=== PATIENT | male | born 1965 | race Caucasian/White ===

== ENCOUNTER 2023-12-29 06:04 | Inpatient (IN) | payer MEDICARE ==
[2023-12-29 06:38] LABS: BASOPHILS ABSOLUTE AUTO 0.02 K/uL (0.00-0.20); BASOPHILS PERCENT AUTO 0.2 % (0.0-1.0); EOSINOPHILS ABSOLUTE AUTO 0.02 K/uL (0.00-0.45); EOSINOPHILS PERCENT AUTO 0.2 % (0.0-6.0); HEMATOCRIT 39.2 % (42.0-52.0); IMMATURE GRAN ABSOLUTE AUTO 0.02 K/uL (0.00-0.05); IMMATURE GRAN PERCENT AUTO 0.2 % (0.0-0.4); LYMPHOCYTES ABSOLUTE AUTO 0.57 K/uL (1.00-4.80); MEAN CORPUSCULAR HEMOGLOBIN 27.4 pg (28.0-32.0); MEAN CORPUSCULAR HGB CONC 33.2 g/dL (32.0-36.0); MEAN CORPUSCULAR VOLUME 82.5 fL (83.0-99.0); MEAN PLATELET VOLUME 9.7 fL (9.4-12.4); MONOCYTES ABSOLUTE AUTO 0.23 K/uL (0.00-0.80); MONOCYTES PERCENT AUTO 2.8 % (0.0-8.0); NEUTROPHILS ABSOLUTE AUTO 7.26 K/uL (1.80-7.70); NEUTROPHILS PERCENT AUTO 89.6 % (41.0-71.0); PLATELET COUNT,PLT 259 K/uL (150-400); RED BLOOD CELL COUNT 4.75 M/uL (4.52-5.90); WHITE BLOOD CELL COUNT,WBC 8.12 K/uL (3.9-11.3)
[2023-12-29 06:49] LABS: BASE EXCESS VENOUS 1.5 (-2.0-3.0); PH,VENOUS 7.54 (7.31-7.41)
[2023-12-29] MEDS: Acetaminophen 500 MG Tab PO ONE (06:51)
[2023-12-29] MEDS: Cefepime 2 GM in Sodium Chloride 0.9% 50 ML IV STA (06:52)
[2023-12-29] MEDS: Sodium Chloride 0.9% 10 ML Syringe FLUSH PRN (06:52)
[2023-12-29] MEDS: Sodium Chloride 0.9% 1,000 ML IV ONE ×2 (06:52→08:04)
[2023-12-29] MEDS: Ondansetron 4 MG/2 ML SDV IVPUSH ONE (06:52)
[2023-12-29] MEDS: Sodium Chloride 0.9% 2.5 ML Syringe FLUSH PRN (06:52)
[2023-12-29 06:56] LABS: D-DIMER QUANTITATIVE 3.98 mg/L FEU (0.00-0.50); INR 1.09 (0.86-1.11); LACTIC ACID 2.5 mmol/L (0.4-2.0)
[2023-12-29 07:02] LABS: ALBUMIN 3.4 g/dL (3.4-5.0); BILIRUBIN TOTAL 0.7 mg/dL (0.2-1.0); CALCIUM 8.7 mg/dL (8.5-10.1); CARBON DIOXIDE,CO2 24.2 mmol/L (21.0-32.0); CREATININE 1.3 mg/dL (0.8-1.3); EST CRCL DRUG DOSING (CG) 57.26 mL/min; MAGNESIUM 1.4 mg/dL (1.8-2.4); POTASSIUM,K 4.3 mmol/L (3.5-5.1); PROTEIN TOTAL,TP 6.7 g/dL (6.4-8.2); TSH ULTRASENSITIVE 1.34 uIU/mL (0.36-3.74)
[2023-12-29] MEDS: Iopamidol 755 MG/ML 500 ML Multipack Bottle IVPUSH STA (07:59)
[2023-12-29] MEDS: VANCOmycin 2 GM/400 ML 2 GM in Premix Bag 1 BAG IV ONE (08:04)
[2023-12-29] MEDS: Ketorolac 30 MG/ML SDV IVPUSH ONE ×2 (09:14→21:31)
[2023-12-29 09:59] LABS: APPEARANCE,URINE CLEAR; BILIRUBIN,URINE NEGATIVE (NEGATIVE); COLOR,URINE YELLOW; GLUCOSE,URINE NEGATIVE (NEGATIVE); KETONES,URINE NEGATIVE (NEGATIVE); LEUKOCYTE ESTERASE,URINE NEGATIVE (NEGATIVE); NITRITE,URINE NEGATIVE (NEGATIVE); OCCULT BLOOD,URINE NEGATIVE (NEGATIVE); PROTEIN,URINE NEGATIVE (NEGATIVE); UROBILINOGEN,URINE 0.2 EU/dL (<2.0)
[2023-12-29 11:33] LABS: INFLUENZA A NAA NEGATIVE (NEGATIVE); INFLUENZA B NAA NEGATIVE (NEGATIVE)
[2023-12-29] MEDS: Azithromycin 500 MG in Sodium Chloride 0.9% 250 ML IV SCH (12:17)
[2023-12-29] MEDS: Albuterol/Ipratropium 3.0-0.5 MG/3 ML Neb Soln NEB SCH (12:18)
[2023-12-29] MEDS: FLUoxetine 20 MG Cap PO SCH (13:07)
[2023-12-29] MEDS: cefTRIAXone 1 GM in Sodium Chloride 0.9% 50 ML IV SCH (14:54)
[2023-12-29] MEDS: Magnesium Oxide 400 MG Tab PO ONE (19:26)
[2023-12-29] MEDS: Pregabalin 75 MG Cap PO SCH (20:50)
[2023-12-29] MEDS: Montelukast 10 MG Tab PO SCH (20:50)
[2023-12-29] MEDS: Pantoprazole 40 MG Tab.CR PO SCH (20:50)
[2023-12-29] MEDS: traZODone 50 MG Tab PO SCH ×2 (21:31→23:18)
[2023-12-30] MEDS: Levothyroxine 50 MCG Tab PO SCH (06:30)
[2023-12-30 06:43] LABS: BASOPHILS ABSOLUTE AUTO 0.06 K/uL (0.00-0.20); BASOPHILS PERCENT AUTO 0.4 % (0.0-1.0); EOSINOPHILS ABSOLUTE AUTO 0.09 K/uL (0.00-0.45); EOSINOPHILS PERCENT AUTO 0.5 % (0.0-6.0); HEMATOCRIT 31.4 % (42.0-52.0); HEMOGLOBIN 10.5 g/dL (14.0-18.0); IMMATURE GRAN ABSOLUTE AUTO 0.13 K/uL (0.00-0.05); IMMATURE GRAN PERCENT AUTO 0.8 % (0.0-0.4); LYMPHOCYTES ABSOLUTE AUTO 1.43 K/uL (1.00-4.80); LYMPHOCYTES PERCENT AUTO 8.3 % (24.0-44.0); MEAN CORPUSCULAR HEMOGLOBIN 27.9 pg (28.0-32.0); MEAN CORPUSCULAR HGB CONC 33.4 g/dL (32.0-36.0); MEAN CORPUSCULAR VOLUME 83.5 fL (83.0-99.0); MONOCYTES ABSOLUTE AUTO 1.18 K/uL (0.00-0.80); MONOCYTES PERCENT AUTO 6.9 % (0.0-8.0); NEUTROPHILS ABSOLUTE AUTO 14.25 K/uL (1.80-7.70); NEUTROPHILS PERCENT AUTO 83.1 % (41.0-71.0); PLATELET COUNT,PLT 201 K/uL (150-400); RED BLOOD CELL COUNT 3.76 M/uL (4.52-5.90); WHITE BLOOD CELL COUNT,WBC 17.14 K/uL (3.9-11.3)
[2023-12-30 07:00] LABS: CALCIUM 8.1 mg/dL (8.5-10.1); CARBON DIOXIDE,CO2 23.8 mmol/L (21.0-32.0); CREATININE 1.2 mg/dL (0.8-1.3); EST CRCL DRUG DOSING (CG) 62.03 mL/min; POTASSIUM,K 3.8 mmol/L (3.5-5.1)
[2023-12-30] MEDS: Lisinopril 10 MG Tab PO SCH (09:08)
[2023-12-30] MEDS: Cetirizine 10 MG Tab PO SCH (09:09)
[2023-12-30] MEDS: cefTRIAXone 2 GM in Sodium Chloride 0.9% 50 ML IV SCH (10:43)
[2023-12-30] MEDS ORDERED: Polyethylene Glycol 3350 Powder 17 GM Packet PO SCH (12:30)
[2023-12-30] MEDS: Ibuprofen 800 MG Tab PO PRN (13:21)
[2023-12-30] MEDS: Polyethylene Glycol 3350 Powder 17 GM Packet PO PRN (13:27)
[2023-12-30] MEDS: Benzonatate 100 MG Cap PO SCH (14:08)
[2023-12-30] MEDS: Cariprazine Hcl [Vraylar] 1.5 MG Capsule PO SCH (15:31)
[2023-12-31 05:24] LABS: BASOPHILS ABSOLUTE AUTO 0.02 K/uL (0.00-0.20); BASOPHILS PERCENT AUTO 0.2 % (0.0-1.0); EOSINOPHILS ABSOLUTE AUTO 0.09 K/uL (0.00-0.45); EOSINOPHILS PERCENT AUTO 0.7 % (0.0-6.0); HEMATOCRIT 31.1 % (42.0-52.0); HEMOGLOBIN 10.4 g/dL (14.0-18.0); IMMATURE GRAN ABSOLUTE AUTO 0.04 K/uL (0.00-0.05); IMMATURE GRAN PERCENT AUTO 0.3 % (0.0-0.4); LYMPHOCYTES ABSOLUTE AUTO 0.94 K/uL (1.00-4.80); LYMPHOCYTES PERCENT AUTO 7.8 % (24.0-44.0); MEAN CORPUSCULAR HGB CONC 33.4 g/dL (32.0-36.0); MEAN CORPUSCULAR VOLUME 83.6 fL (83.0-99.0); MEAN PLATELET VOLUME 9.8 fL (9.4-12.4); MONOCYTES ABSOLUTE AUTO 0.72 K/uL (0.00-0.80); NEUTROPHILS ABSOLUTE AUTO 10.22 K/uL (1.80-7.70); PLATELET COUNT,PLT 219 K/uL (150-400); RED BLOOD CELL COUNT 3.72 M/uL (4.52-5.90); WHITE BLOOD CELL COUNT,WBC 12.03 K/uL (3.9-11.3)
[2023-12-31 05:47] LABS: A/G RATIO 0.9 (0.9-1.6); ALBUMIN 2.7 g/dL (3.4-5.0); BILIRUBIN TOTAL 0.5 mg/dL (0.2-1.0); CALCIUM 8.3 mg/dL (8.5-10.1); EST CRCL DRUG DOSING (CG) 74.43 mL/min; MAGNESIUM 1.8 mg/dL (1.8-2.4); POTASSIUM,K 4.4 mmol/L (3.5-5.1); PROTEIN TOTAL,TP 5.7 g/dL (6.4-8.2)
[2023-12-31 08:02] LABS: BORDETELLA PARAPERT IS1001 Not Detected (Not Detected)
== END 2023-12-31 12:45 | disposition home or self-care (01) | DRG 194 ==
LOC: MW.ED 06:04 → MW.MS 10:08 → OBSVTOIN 12-30 11:01 → MW.MS 12-30 14:38
PROVIDERS: ADMIT Internal Medicine; ATTEND Internal Medicine
DX: J18.9 Pneumonia, unspecified organism (principal); J44.0 Chronic obstructive pulmonary disease with (acute) lower respiratory infection; Z68.43 Body mass index [BMI] 50.0-59.9, adult; I10 Essential (primary) hypertension; G47.33 Obstructive sleep apnea (adult) (pediatric); E05.90 Thyrotoxicosis, unspecified without thyrotoxic crisis or storm; E66.01 Morbid (severe) obesity due to excess calories; F41.9 Anxiety disorder, unspecified; F43.10 Post-traumatic stress disorder, unspecified; E86.0 Dehydration; F31.9 Bipolar disorder, unspecified; E03.9 Hypothyroidism, unspecified; Z79.899 Other long term (current) drug therapy; Z79.890 Hormone replacement therapy; Z87.891 Personal history of nicotine dependence
CPT/HCPCS: 36415 ×2; 71045; 71275; 80048; 80053; 81003; 82803; 83605 ×2; 83735 ×2; 83880; 84443; 84484 ×2; 85025 ×2; 85379; 85610; 87040; 87486; 87581; 87633; 87899 ×2; 96361; 96365; 96366; 96367; 96375; 99285; A9270 ×11; J0456; J0692; J0696 ×2; J1885 ×2; J2405; J3372; J3490 ×4; J7030 ×2; J7050; Q9967; U0002; 87641; 93010; 94640; 96376; 99284; G0378; J7620-GY